=== PATIENT | female | born 1990 | race Caucasian/White ===

== ENCOUNTER 2017-11-16 11:06 | Emergency (ER) | payer OTHER, BC ==
--- NOTE | 2017-11-16 12:06 | ER Document Report ---
ED Dizziness/Weakness - General Chief Complaint: Syncope Stated Complaint: POSSIBLE SYNCOPE Time Seen by Provider: 11/16/17 11:51 Mode of Arrival: Ambulatory Information source: Patient Notes: Chief complaint: Syncope History of complain:( obtained from----patient) 27 years old female did not eat anything since yesterday, ate a half a piece of donor couple of hours later while she was working passed out on the floor briefly. And came around fairly. After she came around alert blood sugar was 92. Prior to that she felt lightheaded, no palpitation or diaphoresis. No other symptoms. Onset: Sudden Duration: Just prior to arrival Severity: Moderate Quality: Not applicable Context: Possible hypoglycemia Exacerbating factor and relieving factors: None REVIEW OF SYSTEMS: CONSTITUTIONAL : Denies fever, chills, or sweats. Denies recent illness. EENT: Denies eye, ear, throat, or mouth pain or symptoms. Denies nasal or sinus congestion or discharge. Denies throat, tongue, or mouth swelling or difficulty swallowing. CARDIOVASCULAR: Denies chest pain. Denies palpitations or racing or irregular heart beat. Denies ankle edema. RESPIRATORY: Denies cough, cold, or chest congestion. Denies shortness of breath, difficulty breathing, or wheezing. GASTROINTESTINAL: Denies distention. Denies nausea, vomiting, or diarrhea. Denies blood in vomitus, stools, or per rectum. Denies black, tarry stools. Denies constipation. GENITOURINARY: Denies difficulty urinating, painful urination, burning, frequency, blood in urine, or discharge. FEMALE GENITOURINARY: Denies vaginal bleeding, heavy or abnormal periods, irregular periods. Denies vaginal discharge or odor. MUSCULOSKELETAL: Denies back or neck pain or stiffness. Denies joint pain or swelling. SKIN: Denies rash, lesions or sores. HEMATOLOGIC : Denies easy bruising or bleeding. LYMPHATIC: Denies swollen, enlarged glands. NEUROLOGICAL: Denies confusion or altered mental status. Denies passing out or loss of consciousness. Denies dizziness or lightheadedness. Denies headache. Denies weakness or paralysis or loss of use of either side. Denies problems with gait or speech. Denies sensory loss, numbness, or tingling. Denies seizures. PSYCHIATRIC: Denies anxiety or stress. Denies depression, suicidal ideation, or homicidal ideation. ALL OTHER SYSTEMS REVIEWED AND NEGATIVE. PHYSICAL EXAMINATION: GENERAL: Well-appearing, well-nourished and in no acute distress. HEAD: Atraumatic, normocephalic. EYES: Pupils equal round and reactive to light, extraocular movements intact, conjunctiva are normal. ENT: Nares patent, oropharynx clear without exudates. Moist mucous membranes. NECK: Normal range of motion, supple without lymphadenopathy LUNGS: Breath sounds clear to auscultation bilaterally and equal. No wheezes rales or rhonchi. HEART: Regular rate and rhythm without murmurs ABDOMEN: Soft, nontender, nondistended abdomen. No guarding, no rebound. No masses appreciated. Examination of genitals-deferred Musculoskeletal: Normal range of motion, no pitting or edema. No cyanosis. NEUROLOGICAL: Cranial nerves grossly intact. Normal speech, normal gait. Normal sensory, motor exams PSYCH: Normal mood, normal affect. SKIN: Warm, Dry, normal turgor, no rashes or lesions noted. Dictation was performed using [employer] voice recognition software TRAVEL OUTSIDE OF THE [place] IN LAST 30 DAYS: No - HPI Notes: Dictated - Related Data Allergies/Adverse Reactions: No Known Allergies Allergy (Unverified 11/16/17 11:32) Past Medical History - General Information source: Patient - Social History Smoking Status: Never Smoker Chew tobacco use (# tins/day): No Frequency of alcohol use: Social Drug Abuse: None Lives with: Family Family History: Reviewed & Not Pertinent Patient has suicidal ideation: No Patient has homicidal ideation: No Renal/ Medical History: Denies: Hx Peritoneal Dialysis Past Surgical History: Reports: Hx Orthopedic Surgery - left foot, Hx Tonsillectomy Review of Systems - Review of Systems Notes: Dictated Physical Exam - Vital signs Vitals: Temp Pulse Resp BP Pulse Ox 98.2 F 71 18 140/95 H 95 11/16/17 11:12 11/16/17 11:12 11/16/17 11:12 11/16/17 11:12 11/16/17 11:12 - Notes Notes: Dictated Course - Re-evaluation Re-evalutation: 11/16/17 12:04 She was explained the mechanism of hypoglycemic syncope. She has been asked to eat proper food every day on a regular time. - Vital Signs Vital signs: Temp Pulse Resp BP Pulse Ox 98.2 F 71 18 140/95 H 95 11/16/17 11:12 11/16/17 11:12 11/16/17 11:33 11/16/17 11:12 11/16/17 11:12 Discharge - Discharge Clinical Impression: Hypoglycemia Syncope Qualifiers: Syncope type: vasovagal syncope Qualified Code(s): R55 - Syncope and collapse Condition: Fair Disposition: HOME, SELF-CARE Instructions: Hypoglycemia ([facility]) Referrals: JESSICA ESCALANTE MD [Primary Care Provider] - Follow up as needed
[2017-11-16 12:09] VITALS: BP 130/90
== END 2017-11-16 12:13 | disposition home or self-care (01) ==
LOC: ER 11:06
DX: E16.2 Hypoglycemia, unspecified (principal); R55 Syncope and collapse
CPT/HCPCS: 99284

== ENCOUNTER 2018-02-03 10:47 | Emergency (ER) | payer BC ==
--- NOTE | 2018-02-03 11:57 | ER Document Report ---
ED Medical Screen (RME) - General Chief Complaint: Skin Problem Stated Complaint: RASH/FEVER Time Seen by Provider: 02/03/18 11:52 Mode of Arrival: Ambulatory Information source: Patient Notes: This is a 27-year-old female that presents to the emergency room with a persistent rash. She initially was treated with prednisone and Benadryl. She states that she developed spreading rash with lymphadenopathy and fever and was treated with Bactrim she is followed by her primary care doctor (Dr. Walsh). She presents to the emergency room with persistent rash which started on her breasts and spread to her chest arms and now face. She has completed 10 days of Bactrim. TRAVEL OUTSIDE OF THE [place] IN LAST 30 DAYS: No - Related Data Allergies/Adverse Reactions: No Known Allergies Allergy (Unverified 11/16/17 11:32) Past Medical History Renal/ Medical History: Denies: Hx Peritoneal Dialysis Past Surgical History: Reports: Hx Orthopedic Surgery - left foot, Hx Tonsillectomy Physical Exam - Vital signs Vitals: Temp Pulse Resp BP Pulse Ox 99.7 F 99 14 124/87 H 99 02/03/18 11:03 02/03/18 11:03 02/03/18 11:03 02/03/18 11:03 02/03/18 11:03 Course - Vital Signs Vital signs: Temp Pulse Resp BP Pulse Ox 99.7 F 99 14 124/87 H 99 02/03/18 11:03 02/03/18 11:03 02/03/18 11:03 02/03/18 11:03 02/03/18 11:03
[2018-02-03 12:27] LABS: ABSOLUTE EOSINOPHILS # (AUTO) 0.2 10^3/uL (0.0-0.6); ABSOLUTE LYMPHOCYTES (AUTO) 0.4 10^3/uL (0.5-4.7); ABSOLUTE MONOCYTES (AUTO) 0.4 10^3/uL (0.1-1.4); ABSOLUTE NEUT (AUTO) 3.2 10^3/uL (1.7-8.2); BASOPHILS % (AUTO) 0.3 % (0-2); EOSINOPHILS % (AUTO) 3.8 % (0-6); HEMATOCRIT 38.3 % (36.0-47.0); MEAN CORPUSCULAR HEMOGLOBIN 28.2 pg (27.0-33.4); MEAN CORPUSCULAR VOLUME 83 fl (80-97); MONOCYTES % (AUTO) 8.5 % (3-13); PLATELET COUNT 289 10^3/uL (150-450); RED BLOOD COUNT 4.61 10^6/uL (3.72-5.28); RED CELL DISTRIBUTION WIDTH 14.7 % (11.5-14.0); SEGMENTED NEUTROPHILS % (AUTO) 77.4 % (42-78); TOTAL CELLS COUNTED % (AUTO) 100 %; WHITE BLOOD COUNT 4.1 10^3/uL (4.0-10.5)
[2018-02-03 12:52] LABS: ALANINE AMINOTRANSFERASE 88 U/L (9-52); ALKALINE PHOSPHATASE 122 U/L (38-126); ANION GAP 11 (5-19); ASPARTATE AMINO TRANSFERASE 109 U/L (14-36); BILIRUBIN,DIRECT 0.2 mg/dL (0.0-0.4); BILIRUBIN,TOTAL 0.4 mg/dL (0.2-1.3); BLOOD UREA NITROGEN 3 mg/dL (7-20); CALCIUM 9.1 mg/dL (8.4-10.2); CARBON DIOXIDE 27 mmol/L (22-30); CHLORIDE 100 mmol/L (98-107); GLUCOSE 101 mg/dL (75-110); POTASSIUM 4.4 mmol/L (3.6-5.0); SODIUM 137.8 mmol/L (137-145); TOTAL PROTEIN 7.6 g/dL (6.3-8.2)
[2018-02-03] MEDS ORDERED: HYDROXYZINE PAMOATE 50 MG CAPSULE PO ONE (14:24)
--- NOTE | 2018-02-03 16:39 | ER Document Report ---
HPI - HPI Patient complains to provider of: Skin rash Onset: Other - 1 month Onset/Duration: Persistent Pain Level: 2 Context: Patient presents complaining of pruritic skin rash that she has had for the past month. Patient has taken steroids and Benadryl about 3 weeks ago without any improvement of her symptoms. Patient states that she did start to develop lymph node swelling 2 weeks ago and saw her primary doctor for this. Patient was placed on Bactrim. Patient complains of redness with skin rash. Patient states that she had a fever yesterday. Patient complains of swollen lymph nodes to groin area below chin and neck area. Associated Symptoms: Fever, Other - Skin rash, lymph nodes enlarged Exacerbated by: Denies Relieved by: Denies Similar symptoms previously: No Recently seen / treated by doctor: Yes - ROS ROS below otherwise negative: Yes Systems Reviewed and Negative: Yes All other systems reviewed and negative - CONSTITUTIONAL Constitutional: REPORTS: Fever - EENT EENT: DENIES: Sore Throat - NEURO Neurology: DENIES: Headache - GASTROINTESTINAL Gastrointestinal: DENIES: Nausea, Patient vomiting - URINARY Urinary: DENIES: Dysuria - REPRODUCTIVE LMP: 12/03/17 - MUSCULOSKELETAL Musculoskeletal: REPORTS: Extremity pain - DERM Skin Color: Normal, Flushed Skin Problems: Rash Past Medical History - General Information source: Patient - Social History Smoking Status: Never Smoker Frequency of alcohol use: Social Drug Abuse: None Occupation: Nurse Family History: Reviewed & Not Pertinent Patient has suicidal ideation: No Patient has homicidal ideation: No - Medical History Medical History: Negative Renal/ Medical History: Denies: Hx Peritoneal Dialysis Past Surgical History: Reports: Hx Orthopedic Surgery - left foot, Hx Tonsillectomy Vertical Provider Document - CONSTITUTIONAL Agree With Documented VS: Yes Exam Limitations: No Limitations General Appearance: WD/WN, No Apparent Distress - INFECTION CONTROL TRAVEL OUTSIDE OF THE [place] IN LAST 30 DAYS: No - HEENT HEENT: Atraumatic, Normal ENT Exam, Normocephalic Notes: No ocular or conjunctival involvement, submental lymphadenopathy, no dental caries, no sublingual swelling - NECK Neck: Normal Inspection, Supple - RESPIRATORY Respiratory: Breath Sounds Normal, No Respiratory Distress - CARDIOVASCULAR Cardiovascular: Regular Rate, Regular Rhythm, No Murmur - GI/ABDOMEN Gastrointestinal: Abdomen Soft - REPRODUCTIVE Notes: Left inguinal lymphadenopathy - BACK Back: Normal Inspection - MUSCULOSKELETAL/EXTREMETIES Musculoskeletal/Extremeties: MAEW, FROM - NEURO Level of Consciousness: Awake, Alert, Appropriate Motor/Sensory: No Motor Deficit - DERM Integumentary: Warm, Dry, Rash - Patient with erythematous rash to trunk face and extremities, areas with annular, lenticular appearance, no petechiae Course - Re-evaluation Re-evalutation: 02/03/18 14:[address] Nye regarding patient presentation and diagnostic evaluation, recommends adding on test as well as gonorrhea and Chlamydia testing. Advises treating symptomatically with hydroxyzine. 02/03/18 19:52 Patient was called and advised of positive chlamydia test. Patient requested the prescription be called into [facility] since needs very. Patient encouraged to have partner seek treatment for chlamydia as well. - Vital Signs Vital signs: Temp Pulse Resp BP Pulse Ox 99.7 F 99 14 124/87 H 99 02/03/18 11:03 02/03/18 11:03 02/03/18 11:03 02/03/18 11:03 02/03/18 11:03 - Laboratory Result Diagrams: 02/03/18 12:02 02/03/18 12:02 Laboratory results interpreted by me: 02/03/18 02/03/18 12:02 12:02 RDW 14.7 H Lymphocytes % 10.0 L Absolute Lymphocytes 0.4 L BUN 3 L AST 109 H ALT 88 H 02/03/18 19:52 Labs- Entire Visit 02/03/18 02/03/18 02/03/18 12:02 12:02 12:02 WBC 4.1 RBC 4.61 Hgb 13.0 Hct 38.3 MCV 83 MCH 28.2 MCHC 34.0 RDW 14.7 H Plt Count 289 Seg Neutrophils % 77.4 Lymphocytes % 10.0 L Monocytes % 8.5 Eosinophils % 3.8 Basophils % 0.3 Absolute Neutrophils 3.2 Absolute Lymphocytes 0.4 L Absolute Monocytes 0.4 Absolute Eosinophils 0.2 Absolute Basophils 0.0 Sodium 137.8 Potassium 4.4 Chloride 100 Carbon Dioxide 27 Anion Gap 11 BUN 3 L Creatinine 0.83 Est GFR ( Amer) > 60 Est GFR (Non-Af Amer) > 60 Glucose 101 Calcium 9.1 Total Bilirubin 0.4 Direct Bilirubin 0.2 Neonat Total Bilirubin Not Reportable Neonat Direct Bilirubin Not Reportable Neonat Indirect Bili Not Reportable AST 109 H ALT 88 H Alkaline Phosphatase 122 Total Protein 7.6 Albumin 4.0 Urine HCG, Qual Chlamydia DNA (PCR) Monotest NEGATIVE N.gonorrhoeae DNA (PCR) 02/03/18 02/03/18 02/03/18 14:52 14:52 16:22 WBC RBC Hgb Hct MCV MCH MCHC RDW Plt Count Seg Neutrophils % Lymphocytes % Monocytes % Eosinophils % Basophils % Absolute Neutrophils Absolute Lymphocytes Absolute Monocytes Absolute Eosinophils Absolute Basophils Sodium Potassium Chloride Carbon Dioxide Anion Gap BUN Creatinine Est GFR ( Amer) Est GFR (Non-Af Amer) Glucose Calcium Total Bilirubin Direct Bilirubin Neonat Total Bilirubin Neonat Direct Bilirubin Neonat Indirect Bili AST ALT Alkaline Phosphatase Total Protein Albumin Urine HCG, Qual NEGATIVE Chlamydia DNA (PCR) Cancelled DETECTED H Monotest N.gonorrhoeae DNA (PCR) Cancelled NOT DETECTED Discharge - Discharge Clinical Impression: Skin rash, Lymphadenopathy Condition: Stable Disposition: HOME, SELF-CARE Instructions: Antihistamines ([facility]), Lymphadenopathy ([facility]) Additional Instructions: Return immediately for any new or worsening symptoms Followup with your primary care provider, call tomorrow to make a followup appointment Additional tests are pending, we will call if you need any different treatment Prescriptions: Hydroxyzine HCl [Atarax 25 mg Tablet] 1 - 2 tab PO QID #20 tablet Forms: Return to Work
[2018-02-03 16:51] VITALS: BP 120/72
[2018-02-03 19:41] LABS: CHLAM PCR DETECTED (NOT DETECT); GON PCR NOT DETECTED (NOT DETECT)
== END 2018-02-03 16:51 | disposition home or self-care (01) ==
LOC: ER 10:47
DX: R21 Rash and other nonspecific skin eruption (principal); R59.1 Generalized enlarged lymph nodes
CPT/HCPCS: 36415; 80053; 81025; 85025; 86308; 86592; 87491; 87591; 99283

== ENCOUNTER 2019-03-10 12:34 | Emergency (ER) | payer SELFPAY ==
[2019-03-10 13:07] VITALS: BP 141/95
--- NOTE | 2019-03-10 13:52 | ER Document Report ---
ED Medical Screen (RME) - General Chief Complaint: Abdominal Pain Stated Complaint: LOWER RIGHT ABDOMINAL PAIN Time Seen by Provider: 03/10/19 13:46 Primary Care Provider: AMIRA TOMLIN MD [Primary Care Provider] - Follow up as needed Mode of Arrival: Ambulatory Information source: Patient Notes: Patient presents complaining of right lower quadrant abdominal pain for the past 3 days. Patient states pain will occasionally radiate to the billable area. Patient reports nausea and vomiting since yesterday. No urinary symptoms, no vaginal bleeding or discharge. Patient states she had vomiting yesterday although none today. I have greeted and performed a rapid initial assessment of this patient. A comprehensive ED assessment and evaluation of the patient, analysis of test results and completion of the medical decision making process will be conducted by additional ED providers. TRAVEL OUTSIDE OF THE [place] IN LAST 30 DAYS: No - Related Data Allergies/Adverse Reactions: No Known Allergies Allergy (Unverified 03/10/19 13:43) Home Medications: Gissell Past Medical History - Social History Chew tobacco use (# tins/day): No Frequency of alcohol use: Social Drug Abuse: None Renal/ Medical History: Denies: Hx Peritoneal Dialysis Past Surgical History: Reports: Hx Orthopedic Surgery - left foot, Hx Tonsillectomy Physical Exam - Vital signs Vitals: Temp Pulse Resp BP Pulse Ox 98.8 F 83 18 141/95 H 99 03/10/19 13:06 03/10/19 13:06 03/10/19 13:06 03/10/19 13:06 03/10/19 13:06 - Abdominal Tenderness: Tender - Right lower quadrant Course - Vital Signs Vital signs: Temp Pulse Resp BP Pulse Ox 98.8 F 83 18 141/95 H 99 03/10/19 13:43 03/10/19 13:06 03/10/19 13:43 03/10/19 13:06 03/10/19 13:43 Doctor's Discharge - Discharge Referrals: AMIRA TOMLIN MD [Primary Care Provider] - Follow up as needed
[2019-03-10 14:20] LABS: ABSOLUTE BASOPHILS # (AUTO) 0.1 10^3/uL (0.0-0.2); ABSOLUTE EOSINOPHILS # (AUTO) 0.1 10^3/uL (0.0-0.6); ABSOLUTE LYMPHOCYTES (AUTO) 1.9 10^3/uL (0.5-4.7); ABSOLUTE MONOCYTES (AUTO) 0.5 10^3/uL (0.1-1.4); BASOPHILS % (AUTO) 0.7 % (0-2); EOSINOPHILS % (AUTO) 1.7 % (0-6); HEMATOCRIT 42.7 % (36.0-47.0); HEMOGLOBIN 14.3 g/dL (12.0-15.5); LYMPHOCYTES % (AUTO) 22.2 % (13-45); MEAN CORPUSCULAR HEMOGLOBIN 29.4 pg (27.0-33.4); MEAN CORPUSCULAR HGB CONC 33.4 g/dL (32.0-36.0); MEAN CORPUSCULAR VOLUME 88 fl (80-97); MONOCYTES % (AUTO) 5.3 % (3-13); PLATELET COUNT 332 10^3/uL (150-450); RED BLOOD COUNT 4.85 10^6/uL (3.72-5.28); RED CELL DISTRIBUTION WIDTH 13.2 % (11.5-14.0); SEGMENTED NEUTROPHILS % (AUTO) 70.1 % (42-78); TOTAL CELLS COUNTED % (AUTO) 100 %; WHITE BLOOD COUNT 8.5 10^3/uL (4.0-10.5)
[2019-03-10 14:28] LABS: APPEARANCE,URINE CLEAR; BILIRUBIN,URINE NEGATIVE (NEGATIVE); COLOR,URINE YELLOW; GLUCOSE, URINE NEGATIVE (NEGATIVE); KETONES,URINE NEGATIVE (NEGATIVE); LEUKOCYTE ESTERASE,URINE MODERATE (NEGATIVE); NITRITE,URINE NEGATIVE (NEGATIVE); PROTEIN,URINE NEGATIVE (NEGATIVE); URINE SPECIFIC GRAVITY 1.017; UROBILINOGEN,URINE NEGATIVE mg/dL (<2.0)
[2019-03-10 14:41] LABS: ALBUMIN 4.7 g/dL (3.5-5.0); ALKALINE PHOSPHATASE 104 U/L (38-126); ANION GAP 10 (5-19); ASPARTATE AMINO TRANSFERASE 33 U/L (14-36); BILIRUBIN,DIRECT 0.1 mg/dL (0.0-0.4); BILIRUBIN,TOTAL 0.6 mg/dL (0.2-1.3); BLOOD UREA NITROGEN 7 mg/dL (7-20); CALCIUM 9.6 mg/dL (8.4-10.2); CARBON DIOXIDE 29 mmol/L (22-30); CHLORIDE 102 mmol/L (98-107); GLUCOSE 90 mg/dL (75-110); POTASSIUM 4.2 mmol/L (3.6-5.0); TOTAL PROTEIN 7.9 g/dL (6.3-8.2)
[2019-03-10 15:54] LABS: CHLAM PCR DETECTED (NOT DETECT)
--- NOTE | 2019-03-10 18:02 | ER Document Report ---
ED General - General Chief Complaint: Abdominal Pain Stated Complaint: LOWER RIGHT ABDOMINAL PAIN Time Seen by Provider: 03/10/19 13:46 Primary Care Provider: AMIRA TOMLIN MD [Primary Care Provider] - Follow up as needed Mode of Arrival: Ambulatory Information source: Patient TRAVEL OUTSIDE OF THE [place] IN LAST 30 DAYS: No - HPI Patient complains to provider of: Patient complains of right lower quadrant abdominal pain times several days Onset/Duration: Gradual, Intermittent Quality of pain: Achy Severity: Mild Pain Level: 3 Associated symptoms: Other - Abdominal pain. Denies history of kidney stones ,prior surgery, and denies vaginal discharge or dysuria. Exacerbated by: Denies Relieved by: Denies Similar symptoms previously: No Recently seen / treated by doctor: No - Related Data Allergies/Adverse Reactions: No Known Allergies Allergy (Unverified 03/10/19 13:43) Home Medications: Gissell Past Medical History - General Information source: Patient - Social History Smoking Status: Never Smoker Chew tobacco use (# tins/day): No Frequency of alcohol use: Social Drug Abuse: None Family History: Reviewed & Not Pertinent Patient has suicidal ideation: No Patient has homicidal ideation: No - Past Medical History Cardiac Medical History: Reports: None Pulmonary Medical History: Reports: None EENT Medical History: Reports: None Neurological Medical History: Reports: None Endocrine Medical History: Reports: None Renal/ Medical History: Reports: None. Denies: Hx Peritoneal Dialysis Malignancy Medical History: Reports: None GI Medical History: Reports: None Skin Medical History: Reports None Psychiatric Medical History: Reports: None Past Surgical History: Reports: Hx Orthopedic Surgery - left foot, Hx Tonsillectomy - Immunizations Immunizations up to date: Yes Review of Systems - Review of Systems Constitutional: No symptoms reported EENT: No symptoms reported Cardiovascular: No symptoms reported Respiratory: No symptoms reported Gastrointestinal: No symptoms reported, See HPI Genitourinary: No symptoms reported, See HPI Female Genitourinary: No symptoms reported, See HPI Musculoskeletal: No symptoms reported Skin: No symptoms reported Hematologic/Lymphatic: No symptoms reported Neurological/Psychological: No symptoms reported Physical Exam - Vital signs Vitals: Temp Pulse Resp BP Pulse Ox 98.8 F 83 18 141/95 H 99 03/10/19 13:06 03/10/19 13:06 03/10/19 13:06 03/10/19 13:06 03/10/19 13:06 - Cardiovascular Rhythm: Regular - Abdominal Distension: No distension Bowel sounds: Normal Tenderness: Tender, Other - Tenderness in the right lower quadrant. No rebound or guarding at that location. Course - Re-evaluation Re-evalutation: 03/10/19 18:21 Patient has normal vital signs and does not appear to be in acute distress at this time. Discussed with patient that she has chlamydia on evaluation of her urinalysis. Plan is to treat her chlamydia with some a Zithromax and ibuprofen. 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 - Vital Signs Vital signs: Temp Pulse Resp BP Pulse Ox 98.8 F 83 18 141/95 H 99 03/10/19 13:43 03/10/19 13:06 03/10/19 13:43 03/10/19 13:06 03/10/19 13:43 - Laboratory Result Diagrams: 03/10/19 14:04 03/10/19 14:04 Laboratory results interpreted by me: 03/10/19 03/10/19 13:53 13:53 Ur Leukocyte Esterase MODERATE H Chlamydia DNA (PCR) DETECTED H - Diagnostic Test Radiology reviewed: Reports reviewed Discharge - Discharge Clinical Impression: Chlamydia infection, Abdominal pain Condition: Good Disposition: HOME, SELF-CARE Instructions: Abdominal Pain ([facility]) Additional Instructions: Patient instructed that she is received antibiotics for chlamydia which is the only abnormality found in her lab work. Patient was found to have some white cells in her urine which I think is part of the STD process. Patient was treated in the past for chlamydia. I explained the patient that chlamydia is a type of infection that can recur at any time. Prescriptions: Ibuprofen [Ibu] 800 mg PO Q8A PRN #20 tablet PRN Reason: For Pain Scale 4-5 Referrals: AMIRA TOMLIN MD [Primary Care Provider] - Follow up as needed
--- NOTE | 2019-03-10 18:04 | RADIOLOGY REPORT (SQ) ---
EXAM DESCRIPTION: U/S NON OB PEL TV W/DOPPLER COMPLETED DATE/TIME: 03/10/2019 5:41 pm REASON FOR STUDY: RLQ pain COMPARISON: None. TECHNIQUE: Dynamic and static grayscale images acquired of the pelvis via transvaginal approach and recorded on PACS. Additional selected color Doppler and spectral images recorded. LIMITATIONS: None. FINDINGS: UTERUS: The uterus measures 7.8 x 4.5 x 3.5 cm. The echotexture of the myometrium is homo geneous. ENDOMETRIAL STRIPE: The endometrium measures 3.7 mm in thickness. CERVIX: Nabothian cysts. RIGHT OVARY AND DOPPLER: The right ovary measures 3.8 x 1.3 x 3.2 cm and on Doppler there is intact a rterial inflow within the ovarian stroma. There is no adnexal mass or free fluid. LEFT OVARY AND DOPPLER: The left ovary measures 3.6 x 1.9 x 1.9 cm and on Doppler there is intact art erial inflow within the ovarian stroma. There is no adnexal mass or free fluid. FREE FLUID: None noted. OTHER: No other finding. IMPRESSION: Normal appearance of the uterus, endometrium and adnexa. TECHNICAL DOCUMENTATION: JOB ID: [id number] [employer]- All Rights Reserved Rev Reading location - IP/workstation name: [email or web address]
[2019-03-10] MEDS ORDERED: AZITHROMYCIN 250 MG TABLET PO ONE (18:09)
[2019-03-10] MEDS ORDERED: IBUPROFEN 800 MG TABLET PO ONE (18:10)
== END 2019-03-10 19:15 | disposition home or self-care (01) ==
LOC: ER 12:34
DX: A56.2 Chlamydial infection of genitourinary tract, unspecified (principal); R10.31 Right lower quadrant pain; R10.813 Right lower quadrant abdominal tenderness; Z79.899 Other long term (current) drug therapy
CPT/HCPCS: 36415; 76830; 80053; 81001; 84703; 85025; 87491; 87591; 93976; 99284